=== PATIENT | female | born 2000 | race Caucasian/White ===

== ENCOUNTER 2022-08-07 10:04 | Emergency (ER) | payer OTHER ==
[~2022-08-07] VITALS: Ht 147.3 cm; Wt 59.0 kg
[2022-08-07 10:27] VITALS: BP 113/81
--- NOTE | 2022-08-07 10:45 | NUR ---
24 y/o female c/o right flank pain x today. Patient also reports burning while urination yesterday but pain decreased since she started increasing water intake. Patient denies taking any pain medication. Denies any fever, chills or SOB. Medical History: Denies NKDA
--- NOTE | 2022-08-07 11:16 | NUR ---
Lab at bedside.
--- NOTE | 2022-08-07 11:34 | NUR ---
Patient was taken to CT via wheelchair.
--- NOTE | 2022-08-07 11:41 | NUR ---
Patient returned from CT.
--- NOTE | 2022-08-07 11:51 | NUR ---
Lab at bedside.
[2022-08-07 11:52] LABS: BLOOD, URINE MODERATE (NEGATIVE)
[2022-08-07 11:53] LABS: APPEARANCE,URINE CLOUDY (CLEAR); COLOR,URINE YELLOW (YELLOW); LEUKOCYTE ESTERASE ,URINE 2+ (NEGATIVE); UGLUCOSE NEGATIVE (NEGATIVE)
[2022-08-07 11:54] LABS: BILIRUBIN,URINE NEGATIVE (NEGATIVE); NITRITE, URINE NEGATIVE (NEGATIVE)
[2022-08-07 12:18] LABS: URINE AMORPHOUS URATE 1+ /HPF (None Seen)
[2022-08-07 12:23] LABS: BASOPHILS % (AUTO) 0.3 % (0.0-2.0); EOSINOPHILS # (AUTO) 0.1 K/uL (0-0.4); EOSINOPHILS % (AUTO) 0.7 % (0.0-4.0); HEMATOCRIT 35.7 % (36-48); HEMOGLOBIN 12.1 g/dL (12.0-16.0); LYMPHOCYTES # (AUTO) 2.1 K/uL (2.5-16.5); LYMPHOCYTES % (AUTO) 20.3 % (20.5-51.1); MEAN CORPUSCULAR HEMOGLOBIN 30 pg (27-31); MEAN CORPUSCULAR HGB CONC 34 g/dL (33-37); MEAN CORPUSCULAR VOLUME 89.1 fL (80-94); MONOCYTES # (AUTO) 0.6 K/uL (0.8-1.0); MONOCYTES % (AUTO) 5.9 % (1.7-9.3); NEUTROPHILS # (AUTO) 7.7 K/uL (1.8-7.7); NEUTROPHILS % (AUTO) 72.8 % (42.2-75.2); PLATELET COUNT (AUTO) 246 K/uL (140-450); RED BLOOD CELL COUNT(AUTO) 4.01 MIL/uL (4.20-5.40); RED CELL DISTRIBUTION WIDTH 12.7 % (11.6-13.7); WHITE BLOOD COUNT (AUTO) 10.5 K/uL (4.8-10.8)
[2022-08-07 12:47] LABS: ALBUMIN 4.1 g/dL (3.4-5.0); ANION GAP 13.6 (8-16); CARBON DIOXIDE 26.3 mmol/L (21-32); CREATININE 0.5 mg/dL (0.6-1.3); POTASSIUM 3.9 mmol/L (3.5-5.1); TOTAL BILIRUBIN 0.3 mg/dL (0.0-1.0)
--- NOTE | 2022-08-07 12:58 | NUR ---
Dr. Van re-evaluating patient at bedside.
[2022-08-07] MEDS ORDERED: CEPH-588 PO (13:25)
[2022-08-07] MEDS ORDERED: IBUP-2213 PO (13:26)
[2022-08-07 13:37] VITALS: BP 99/55
--- NOTE | 2022-08-07 13:37 | NUR ---
Patient discharged with v/s stable. Written and verbal after care instructions given. Patient alert, oriented and verbalized understanding of instructions. Ambulatory with steady gait. All questions addressed prior to discharge. ID band removed. Patient advised to follow up with PMD. Rx of Keflex and Ibuprofen given. Opportunity to ask questions provided and answered.
--- NOTE | 2022-08-07 13:37 | NUR ---
The patient's care was reviewed and supervised by Douglas Méndez RN.
[2022-08-09] MEDS ORDERED: SULF-58 PO (11:42)
--- NOTE | 2022-08-09 11:46 | NUR ---
LATE ENTRY. RECEIVED POSITIVE URINE CULTURE. FORM GIVEN TO DR BERNAL. NEW RX OF BACTRIM DS SENT TO [facility]. PT CONTACTED AND INFORMED TO STOP KEFLEX AND START & FINISH NEW RX. PT ACKNOWLEDGED.
== END 2022-08-07 13:37 | disposition home or self-care (01) ==
LOC: MED 10:04
DX: N12 Tubulo-interstitial nephritis, not specified as acute or chronic (principal); R31.9 Hematuria, unspecified
CPT/HCPCS: 36415; 80053; 81001; 81025; 83605; 85025; 87086; 99284